=== PATIENT | female | born 2000 | race Caucasian/White ===

== ENCOUNTER 2020-05-15 15:11 | Day surgery (SDC) | payer OTHER, SELFPAY ==
[2020-05-15 15:57] VITALS: BP 122/79; PULSE 82; RESP 16; TEMP 37; O2SAT 100; BMI 17.8
[2020-05-15] MEDS: LACTATED RINGERS 1,000 ML 100 ML IV (16:10)
[2020-05-15 16:16] LABS: COVID19 -Nasal RAPID Negative (Negative)
[2020-05-15 17:31] VITALS: BMI 17.8
--- NOTE | 2020-05-15 18:15 | PM.PREOP ---
Pre-operative Note COVID-19 COVID-19 status: Negative Result date/Date tested (Pos, Neg/Pending): 05/15/20 Interval Note History & Physical reviewed/Exam performed by Physician: Yes Changes to H&P: No H&P completed within 30 days and has changed as indicated here:: The patient was seen in the preoperative area. We discussed the risk of damage to surrounding structures including the urethra and nerves to the clitoris, risk of worsening infection without packing, and risk of ongoing bleeding. We discussed taking her antibiotics as prescribed, and that there would be no wound packing given that she plans to travel to a different state tomorrow and is uncomfortable changing a wet to dry dressing. Informed consents were signed and all questions were answered.
[2020-05-15] MEDS: CEFAZOLIN 2 GM/100 ML FROZ.PIGGY IV (18:40)
--- NOTE | 2020-05-15 18:48 | PM.OP.1 ---
Operative Date/Time/Diagnoses Date of procedure: 05/15/20 Time of procedure: 18:48 Pre-op diagnosis: clitoral connell abscess Post-op diagnosis: same Procedure & Clinicians Procedure: incision and drainage Same procedure as scheduled: Yes Indications: clitoral connell abscess Surgeon: Yane Wade Click Yes if Unassisted: Yes Anesthesia Type: Sedation Operative Notes Findings: clitoral connell abscess Closure Type: primary Specimen(s): other (aerobic, anaerobic, and GC/chlamydia culture) Estimated Blood Loss (mL): 0 Procedure in detail: After informed consent was obtained, a test and covid test were performed and were negative. The patient was taken to the operating room and placed in the dorsal lithotomy position. IV sedation was obtained, the patient was prepped and draped in the normal sterile fashion. 1 cc of 1% lidocaine with epinephrine was injected in the skin over the abscess, was tolerated poorly by the patient despite IV sedation. Area of incipient rupture was easily visible, grasped with an Adson forceps and unroofed. Copious amounts of green long, purulent, foul-smelling discharge spontaneously drained from the abscess, totaling approximately 7 cc. Q-tips from culture tubes were used pill to culture the abscess fluid and to break up any loculations. The abscess cavity was approximately 0.5 cm deep, 3 cm long, and 1 cm from side to side Exam under anesthesia showed no extension of the induration into the vagina or adjacent labia, with the abscess largely confined to the right side of the clitoral connell. Clitoris was palpable but not within the abscess cavity. The abscess cavity was irrigated copiously with sterile saline, which spontaneously drained. An 11 blade was used to extend the incision for approximately 1 cm anteriorly, vertically. As the patient had previously discussed that she is traveling to a different state tomorrow and has no intention of changing wet to dry dressings, the abscess cavity was not packed as is usual practice. Patient received 2 g of Ancef after the cultures were obtained. She tolerated the procedure well and was taken to the PACU in stable condition. Complications: none Post-operative Condition: stable Disposition: PACU Plan for aftercare: Patient is for discharge home on p.o. Keflex for 7 days, received Ancef in PACU. Patient received Keflex as local Macrobid are usually susceptible and patient cannot remember antibiotic she is allergic to, but knows she has tolerated Keflex in the past.
[2020-05-15 18:52] VITALS: BP 107/58; BP 108/59; PULSE 72; PULSE 79; RESP 14; RESP 15; TEMP 36.7; O2SAT 100
[2020-05-15 18:57] VITALS: BP 108/59; PULSE 73; RESP 9; O2SAT 100
[2020-05-15] MEDS: LIDOCAINE 1% W/EPI 20 ML INJ (19:09)
[2020-05-15 19:12] VITALS: BP 111/68; PULSE 80; RESP 19; O2SAT 99
[2020-05-15 19:18] VITALS: BP 112/73; PULSE 75; RESP 12; O2SAT 100
[2020-05-20 21:36] LABS: Chlamydia trachomatis Negative (Negative); Mycoplasma genitalium Negative (Negative); Neisseria gonorrhoeae Negative (Negative)
== END 2020-05-15 19:20 | disposition home or self-care (01) ==
PROVIDERS: Referring Provider Obstetrics & Gynecology; Visit Provider Obstetrics & Gynecology
PROC: (CPT 56405; principal; 2020-05-15 18:30)
DX: N76.4 Abscess of vulva (principal); F41.9 Anxiety disorder, unspecified
CPT/HCPCS: 56405; 87070; 87075; 87076; 87205; 87491; 87591; 87635; J0690; J2250; J2704

== ENCOUNTER 2020-07-27 14:21 | Emergency (ER) | payer OTHER, SELFPAY ==
[2020-07-27 14:31] VITALS: BP 119/73; PULSE 77; RESP 16; TEMP 36.9; O2SAT 100; BMI 18.2
[2020-07-27 16:34] VITALS: BP 126/76; PULSE 78; O2SAT 99
--- NOTE | 2020-07-27 17:09 | ED.FEMALEGU ---
HPI - Female Genitourinary <CAPO Garcia - Last Filed: 07/27/20 22:53> General Chief complaint: Urogenital-Female Stated complaint: CLITORAL ABSCESS NEEDS DRAINING Time Seen by Provider: 07/27/20 16:56 Source: patient Mode of arrival: Ambulatory Limitations: no limitations History of Present Illness HPI Narrative: This is a 20 year female, nonsmoker, who has past medical history significant for clue tore abscess presents to ED with chief complain of clitoral abscess which has increased in size overnight with increasing pain. Patient reports initially she had 1st clitoral abscess in December 2019 and it had drained on its own using Sitz baths but left the small cyst. Patient had recurring clots or abscess in May 2020 which was drained by Dr. Wade in OR and was put on antibiotic medication but had left a scar. Culture was obtained according to the patient. Two weeks ago she noticed cyst again near clitoris. She was evaluated by Dr. Wade and according to her since the cyst was locating near the nerve, Dr. Wade elected not to incise this and had referred the patient to the specialist in [place]. Patient is requesting it to be drained before it gets extremely painful and difficulty with walking. Patient denies fever, chills, nausea or vomiting. Patient denies drainage from the site. Patient denies inguinal lymph node tenderness. Patient denies IV drug use. Related Data Home Medications Medication Instructions Recorded Confirmed Camrese 0.15 cap PO DAILY 05/15/20 07/29/20 Previous Rx's Medication Instructions Recorded cephalexin [Keflex] 500 mg PO QID 7 Days #28 cap 07/27/20 Allergies Allergy/AdvReac Type Severity Reaction Status Date / Time No Known Drug Allergies Allergy Verified 07/29/20 11:53 Review of Systems <CAPO Garcia - Last Filed: 07/27/20 22:53> Review of Systems Narrative: General: Denies fever, chills, fatigue, malaise, sweats. Respiratory: Denies dyspnea, cough, wheezing, hemoptysis, sputum. Cardiovascular: Denies chest pain, palpitations, orthopnea, edema. Gastrointestinal: Denies nausea, vomiting, abdominal pain, diarrhea, constipation, melena. : See HPI Skin: See HPI Patient History <CAPO Garcia - Last Filed: 07/27/20 22:53> Medical History Absence of clitoris Smoking Status: Never smoker alcohol intake frequency: holidays/special occasions only Substance Use Type: does not use Exam <[facility] Antonio SAP DATA ANALYST - Last Filed: 07/27/20 22:53> Narrative Exam Narrative: General appearance: well developed, well nourished, in no acute distress. Head: normocephalic, atraumatic, no scalp lesions, non-tender. ENT: Hearing grossly intact. Airway patent. Neck/Thyroid: neck supple, full range of motion, no visible masses or meningeal signs. No JVD, non-tender without lymphadenopathy. Skin: Enlarged prepuce/clitorial connell without fluctuance. Tender to light palpation and mild warmth. No drain from the site. No signs of cellulitis and surrounding regions. No inguinal lymph adenopathy. Warm and dry and appropriate color for ethnicity. Heart: no clubbing, no cyanosis, no edema. S1 and S2 normal. RRR w/o murmurs, clicks, or bruits. Lungs: Breathing even and unlabored. No stridor. No accessory muscles used. Able to speak in full sentences. Chest: normal shape and expansion. Abdomen: non-obese, non-distended. Neurologic: alert and oriented. Cognitive exam, QUALITY COMPLIANCE COORDINATOR and PNS grossly intact on informal exam. Psych: good eye contact, normal affect. Initial Vital Signs Initial Vital Signs: Vital Signs Temperature 98.5 F 07/27/20 14:31 Pulse Rate 77 07/27/20 14:31 Respiratory Rate 16 07/27/20 14:31 Blood Pressure 119/73 07/27/20 14:31 Pulse Oximetry 100 07/27/20 14:31 <Jaquelin Coleman DO - Last Filed: 08/01/20 19:32> Initial Vital Signs Initial Vital Signs: Vital Signs Temperature 98.5 F 07/27/20 14:31 Pulse Rate 77 07/27/20 14:31 Respiratory Rate 16 07/27/20 14:31 Blood Pressure 119/73 07/27/20 14:31 Pulse Oximetry 100 07/27/20 14:31 Scores <[facility] AntonioCAPO - Last Filed: 07/27/20 22:53> GCS [place] coma scale eye opening: Spontaneous Mikel coma scale verbal response: Orientated Mikel coma scale motor response: Obey commands [place] coma scale total score: 15 qSOFA Altered Mental Status (GCS <15): No Respiratory rate greater than/equal to 22: No Systolic blood pressure less than or equal to 100: No qSOFA Total: 0 0-1 Not High Risk 1-3 High risk Course <CAPO Garcia - Last Filed: 07/27/20 22:53> Orders Ordered: Discontinued Medications Cefazolin Sodium (Cephalexin 250 Mg Prepack) 1 bottle MISC SEEINSTR ONE Stop: 07/27/20 17:13 Last Admin: 07/27/20 17:34 Dose: 500 mg Documented by: ARNULFO Consultations Consultation #1: Phone consulted with Dr. Reyes with physical findings and patient's vital signs. She recommended to call the clinic tomorrow and start patient on antibiotic medication Keflex and encouraged Sitz bath. Time: 17:30 Vital Signs Vital signs: Vital Signs - 8 hr 07/27/20 16:34 07/27/20 17:39 Pulse Rate 78 92 H Respiratory Rate 17 Blood Pressure 126/76 107/68 Pulse Oximetry 99 98 <Jaquelin Coleman DO - Last Filed: 08/01/20 19:32> Orders Ordered: Discontinued Medications Cefazolin Sodium (Cephalexin 250 Mg Prepack) 1 bottle MISC SEEINSTR ONE Stop: 07/27/20 17:13 Last Admin: 07/27/20 17:34 Dose: 500 mg Documented by: ARNULFO Vital Signs Vital signs: Vital Signs - 8 hr 07/27/20 16:34 07/27/20 17:39 Pulse Rate 78 92 H Respiratory Rate 17 Blood Pressure 126/76 107/68 Pulse Oximetry 99 98 MDM - Female Genitourinary <CAPO Garcia - Last Filed: 07/27/20 22:53> Differential Diagnosis Differential diagnosis: Likely other (Clitorial connell abscess, cellulitis, cyst) Medical Records Attestation: I reviewed the patient's medical records. Lab Data Labs: Point of Care Testing Test Results Negative Urine Dip Bedside Urine Glucose Negative Bedside Urine Bilirubin - Negative Bedside Urine Ketone - Negative Urine Specific [place] 1.030 Bedside Urine Occult Blood +/- Bedside Urine pH 6.0 Bedside Urine Protein - Negative Bedside Urine Urobilinogen - Negative Bedside Urine Nitrite - Negative Bedside Urine Leukocytes - Negative Esterase MDM Narrative Medical decision making narrative: This is a 20-year-old female who presents to ED with recurring clitoral abscess and requesting I and D procedure. Physical exam noted moderate swelling to critorial prepuce without fluctuance and was tender to palpate. Obvious drainage this time. Patient reports pain is tolerable but is concerned in a day or 2 it could become severe. Surgical site abscess wound culture on 05/15/20 shows Prevotella bivia but no sensitivity was done. Patient has no constitutional symptoms. Afebrile with within normal limits of vital signs. No signs of sepsis and does not appears to be toxic. Findings were discussed with Dr. Reyes over the phone she recommended starting her on antibiotic medication, encourage frequent Sitz with and to call clinic tomorrow for an evaluation [facility]. This was shared with patient and she verbalized under understanding on treatment plan. Return precautions were discussed with patient and she verbalized understanding. Patient discharged to home with Keflex prepack and advised to use [id number] Tylenol and or Motrin as needed for discomfort. <Jaquelin Coleman, DO - Last Filed: 08/01/20 19:32> Lab Data Labs: Point of Care Testing Test Results Negative Urine Dip Bedside Urine Glucose Negative Bedside Urine Bilirubin - Negative Bedside Urine Ketone - Negative Urine Specific [place] 1.030 Bedside Urine Occult Blood +/- Bedside Urine pH 6.0 Bedside Urine Protein - Negative Bedside Urine Urobilinogen - Negative Bedside Urine Nitrite - Negative Bedside Urine Leukocytes - Negative Esterase Discharge Plan Departure Patient Disposition: Home Clinical Impression: Abscess Instructions: DI for Vulvar Abscess Activity Restrictions/Additional Instructions: You have been diagnosed with [likely recurring clitoral abscess]. What to do: *Take your medications as directed. Please start antibiotic medication Keflex 500 mg 4 times a day for next 7 days. The remaining dose has been transmitted to [facility] in [place]. Please use frequent Sitz baths or warm pack on affected site. *Follow up with Dr. Wade office tomorrow call for an appointment. I spoke with Dr. Reyes today and she recommended to call the office tomorrow morning to be seen at the office. Let them know you were seen in the ED and that we asked you to be seen in follow up. *Return to ED if you have any new, worsening, or concerning symptoms, such as [worsening pain, fever, chills, nausea, vomiting, chest pain, breathing difficulty or any acute concerns]. Prescriptions: New cephalexin [Keflex] 500 mg capsule 500 mg PO QID 7 Days Qty: 28 RF: 0 No Action Camrese 0.15 cap PO DAILY RF: 0 Referrals: Yane Wade MD [Physician] - Miscellaneous,MD Dany [Primary Care Provider] -
[2020-07-27] MEDS: cephALEXin 250 MG PREPACK 1 BOTTLE MISC (17:34)
[2020-07-27 17:39] VITALS: BP 107/68; PULSE 92; RESP 17; O2SAT 98
== END 2020-07-27 17:42 | disposition home or self-care (01) ==
PROVIDERS: Emergency Provider Nurse Practitioner Family
DX: N76.4 Abscess of vulva (principal)
CPT/HCPCS: 81003; 81025; 99281; 99283

== ENCOUNTER → 2020-07-29 12:26 | Outpatient (CLI) | payer OTHER, SELFPAY | PROVIDERS: Visit Provider Obstetrics & Gynecology | DX: N76.4 Abscess of vulva (principal) | CPT/HCPCS: 87070; 87205 ==